=== PATIENT | male | born 2000 | race Caucasian/White ===

== ENCOUNTER 2024-10-16 12:48 | Emergency (ER) | payer SELFPAY ==
--- NOTE | 2024-10-16 13:04 | ED_ITS ---
<Statement entered by Idalmis Mclaughlin MD - 10/16/24 16:59> I was consulted by the JENNI, and we discussed the complexity of problems being addressed. I approved the treatment and management plan for this patient's care in the emergency department, thus performing a substantive portion of the medical decision making. Idalmis Mclaughlin MD Discharge Plan Disposition Patient Disposition: Home, Self-Care Condition: Good Prescriptions Prescriptions: New ajnmbodnueigzst-jtmuqptty-TM [Bromfed DM] 2-30-10 mg/5 mL syrup 5 ml PO Q4H PRN (Reason: sinus symptoms) Qty: 118 0RF Referrals Follow up/Referrals: Provider,Referral, [Primary Care Provider] - See instructions Activity Restrictions/Add. Instructions Additional Instructions/Restrictions: I have sent in a cough congestion medication to your pharmacy. I also recommend taking 1000 mg of Tylenol alternating every 4 hours with 800 mg of ibuprofen. If you have any persistent new or worsening signs or symptoms follow-up with your PCP or return to the ER as needed. Please check your patient portal for the results of your respiratory panel later today. Clinical Impressions Clinical Impression: Viral upper respiratory tract infection with cough Stand Alone Forms Stand Alone Forms: Work/School Release Print Language Print Language: [place]an Discharge ED Provider: Idalmis Mclaughlin General Adult HPI General Chief complaint: Upper Respiratory Infection Stated complaint: mirgraine dry throat nausea blurred vision Time Seen by Provider: 10/16/24 13:04 History of Present Illness HPI narrative: Patient presents for evaluation of headache congestion and cough. Patient gives 3-day history of frontal headache nasal congestion and a dry pervasive persistent cough. He denies any neck pain change in level of consciousness fever chills hemoptysis hematochezia melena nausea vomit diarrhea. He has tried lfcp-kmj-fhielno cough and cold medicine without relief. Patient went to see his PCP and they sent him to the ER for evaluation. ` Related Data Previous Rx's ?Medication ?Instructions ?Recorded twezxezvisdyfrv-bctbbmunwantulm-OJ 5 ml PO Q4H PRN sinus symptoms 10/16/24 2 mg-30 mg-10 mg/5 mL oral syrup #118 mL (Bromfed DM) Allergies Allergy/AdvReac Type Severity Reaction Status Date / Time No Known Allergies Allergy Verified 10/16/24 13:30 [facility] Disclaimer: The information contained in this section may have been updated after the patient was seen, as this information can be updated by other users. Social History Smoking Status: Never smoker alcohol intake: never current occupational status: employed Travel in the last 8 weeks?: None ROS Obtained: Yes Systems reviewed as appropriate & no additional complaints except as documented Physical Exam General General appearance: alert Respiratory Respiratory exam: Present normal lung sounds bilaterally Cardiovascular Cardiovascular exam: Present regular rate Neurological Exam Neurological exam: Present alert, oriented X3, CN II-XII intact and normal gait; Absent motor sensory deficit Medical Decision Making Medical Records Medical records reviewed: Yes I reviewed the patient's medical records. Screening: Per USPSTF and CDC recommendations, given the prevalence of disease in our region, it is our hospital?s policy to screen for HIV and viral Hepatitis for all patients aged 18 and over and those with ongoing risk factors. Jn Inquiry Pt receiving controlled substance: No Vital Signs: 10/16/24 13:12 Temperature 98.4 F Temperature Source Oral Pulse Rate [Left] 98 H Respiratory Rate 14 Blood Pressure [Right Arm] 141/89 H Blood Pressure Mean [Right Arm] 106 Blood Pressure Source [Right Arm] Automatic Cuff Blood Pressure Position [Right Arm] Sitting 02 Sat by Pulse Oximetry 99 Oxygen Delivery Method Room Air Lab Data Lab results reviewed: Yes I reviewed the patient's lab results. Lab Results 10/16/24 13:15: Group A Strep Rapid Negative Orders (Tests/Meds): ED MEDICATIONS Discontinued Medications Generic Name Dose Route Start Last Admin Trade Name Cory PRN Reason Stop Dose Admin Acetaminophen 1,000 mg 10/16/24 13:18 10/16/24 13:38 Acetaminophen 500mg Tab PO 10/16/24 13:19 1,000 mg ONCE ONE Administration Diphenhydramine HCl 50 mg 10/16/24 13:18 10/16/24 13:38 Diphenhydramine 25mg Capsule PO 10/16/24 13:19 50 mg ONCE ONE Administration Ibuprofen 800 mg 10/16/24 13:18 10/16/24 13:38 Ibuprofen 400 Mg Tablet PO 10/16/24 13:19 800 mg ONCE ONE Administration ORDERS Category Date Time Status Rapid PCR Covid and Flu A/B Stat Lab 10/16/24 13:15 Received Rapid Strep Scrn Group A [Strep Scrn Group A (Rapid)] Lab 10/16/24 13:15 Completed Stat Strep Screen Confirmation Stat Micro 10/16/24 13:15 Received Medical Decision Narrative: In summary patient is a 23-year-old male who presents to the emergency department for evaluation of headache sore throat non productive dry cough. Patient is hemodynamically stable upon arrival, afebrile. Physical exam is remarkable for no nuchal rigidity no meningeal signs, patient has good flexion and extension of his C-spine without pain, pupils equal round reactive to light extraocular movements intact without pain, oropharynx is erythematous without exudate, bilateral tympanic membranes are normal, patient has shotty nontender lymph nodes bilaterally in the neck, breath sounds clear and equal bilaterally to the bases without adventitious sounds increased work of breathing or accessory muscle use.. Differential diagnosis includes upper or lower respiratory tract infection. Initial workup will be conducted with strep and full respiratory panel swabs. Initial interventions include Tylenol and ibuprofen Benadryl Robaxin however patient declined as his headache is gone upon nurse arrival to administer them. Initial workup reviewed by me shows his strep swab is negative. Upon repeat evaluation patient remains headache free and I had a shared decision-making discussion with the patient has he has access to the patient portal he is comfortable going home and following up with his respiratory panel via the jenni. Given this patient is appropriate discharge with prescription for Bromfed and instructed to continue taking Tylenol alternating with Motrin every 4 hours and should he have persistent new or worsening signs or symptoms follow-up with his PCP return to the ER as needed. Critical Care Critical Care Time Critical Care Time: No
[2024-10-16 13:12] VITALS: BP 141/89; PULSE 98; RESP 14; TEMP 36.9; O2SAT 99; BMI 21.3
[2024-10-16 13:22] LABS: Coronavirus 19, PCR Not Detected (NotDetected); Influenza A, PCR Not Detected (NotDetected); Influenza B, PCR Not Detected (NotDetected)
[2024-10-16 13:33] LABS: Strep Scrn Group A (Rapid) Negative (Negative)
[2024-10-16] MEDS: diphenhydrAMINE 25MG CAPSULE 50 MG PO (13:38)
[2024-10-16] MEDS: ACETAMINOPHEN 500MG TAB 1000 MG PO (13:38)
[2024-10-16] MEDS: IBUPROFEN 400 MG TABLET 800 MG PO (13:38)
[2024-10-16 14:08] VITALS: BP 135/82; PULSE 89; RESP 16; TEMP 36.9
== END 2024-10-16 14:11 | disposition home or self-care (01) ==
PROVIDERS: Emergency Provider Student in an Organized Health Care Education/Training Program
DX: R51.9 Headache, unspecified (principal); R09.81 Nasal congestion; J06.9 Acute upper respiratory infection, unspecified; R05.9 Cough, unspecified
CPT/HCPCS: 87430; 87636; 99283